=== PATIENT | male | born 1985 | race Caucasian/White ===

== ENCOUNTER 2018-01-22 05:44 | Emergency (ER) | payer OTHER ==
[2018-01-22] MEDS ORDERED: DEXAMETHASONE 10 MG/ML VIAL ONE (05:52)
[2018-01-22] MEDS ORDERED: DIPHENHYDRAMINE 50 MG/ML VIAL ONE (05:52)
[2018-01-22] MEDS ORDERED: EPINEPHRINE/PF 1 MG/ML AMP ONE (05:53)
[2018-01-22] MEDS ORDERED: FAMOTIDINE 20 MG/2 ML VIAL IV ONE (06:02)
[2018-01-22] MEDS ORDERED: NA CHLORIDE 0.9% 1,000 ML ONE (06:02)
[2018-01-22] MEDS ORDERED: ONDANSETRON 4 MG/2 ML VIAL ONE (06:04)
--- NOTE | 2018-01-22 06:51 | ER ---
Nurse's Notes [facility] Name: Bartolo Dotson Age: 32 yrs Sex: Male : 1985 Arrival Date: 01/22/2018 Time: 05:49 Bed 4 Private MD: Diagnosis: acute allergic reaction Presentation: 01/22 05:50 Presenting complaint: Patient states: Woke up at 0430 vomiting and began to have facial tl2 swelling and feeling like throat was closing up with breathing difficulty. Transition of care: patient was not received from another setting of care. Onset: The symptoms/episode began/occurred acutely. Anaphylaxis evaluation, angioedema. Onset of symptoms was January 22, 2018 at 04:30. Risk Assessment: Do you want to hurt yourself or someone else? Patient reports no desire to harm self or others. Initial Sepsis Screen: Does the patient meet any 2 criteria? No. Patient's initial sepsis screen is negative. Does the patient have a suspected source of infection? No. Patient's initial sepsis screen is negative. Care prior to arrival: None. 05:50 Method Of Arrival: Ambulatory tl2 05:50 Acuity: DALY 2 tl2 Triage Assessment: 05:51 General: Appears in no apparent distress. uncomfortable, Behavior is cooperative, tl2 appropriate for age, anxious. Pain: Denies pain. EENT: Throat uvula is edematous. Neuro: Level of Consciousness is awake, alert, obeys commands, Oriented to person, place, time, situation. Respiratory: Airway is patent Respiratory effort is even, labored, Respiratory pattern is regular, symmetrical. Historical: - Allergies: 05:51 No Known Allergies; tl2 - Home Meds: 05:51 None [Active]; tl2 - PMHx: 05:51 None; tl2 - Immunization history:: Adult Immunizations up to date. - Social history:: Smoking status: Patient/guardian denies using tobacco. - Ebola Screening: : No symptoms or risks identified at this time. - Family history:: not pertinent. - Hospitalizations: : No recent hospitalization is reported. Screenin:53 Abuse screen: Denies threats or abuse. Denies injuries from another. Nutritional mg2 screening: No deficits noted. Tuberculosis screening: No symptoms or risk factors identified. Fall Risk IV access (20 points). Assessment: 05:54 General: Appears uncomfortable, Behavior is calm, cooperative. Pain: Denies pain. mg2 Neuro: Level of Consciousness is awake, alert, obeys commands, Oriented to person, place, time, situation. Cardiovascular: Capillary refill < 3 seconds Patient's skin is warm and dry. 06:17 Respiratory: Airway is patent pt with swollen uvula noted. Breath sounds are clear ak1 bilaterally. GI: Abdomen is flat, Reports nausea, vomiting. : No signs and/or symptoms were reported regarding the genitourinary system. EENT: redness and swelling under bilateral eyes. Derm: No signs and/or symptoms reported regarding the dermatologic system. Musculoskeletal: No signs and/or symptoms reported regarding the musculoskeletal system. Vital Signs: 05:51 BP 142 / 84; Pulse 95; Resp 20; Temp 97.8(O); Pulse Ox 98% on R/A; Weight 104.33 kg; tl2 Height 5 ft. 8 in. (172.72 cm); Pain 0/10; 06:17 BP 141 / 85; Pulse 72; Resp 18; Pulse Ox 100% on 2 lpm NC; ak1 06:52 BP 138 / 85; Pulse 75; Resp 16; Temp 98; Pulse Ox 100% on R/A; Pain 0/10; ak1 05:51 Body Mass Index 34.97 (104.33 kg, 172.72 cm) tl2 ED Course: 05:49 Patient arrived in ED. tl2 05:50 Inserted saline lock: 20 gauge in right antecubital area, using aseptic technique. ak1 05:51 Triage completed. tl2 05:51 Arm band placed on right wrist. tl2 05:53 Bharath Mills MD is Attending Physician. sc 05:54 Patient has correct armband on for positive identification. Placed in gown. Bed in low tl2 position. Call light in reach. Side rails up X 1. Adult w/ patient. 06:18 No provider procedures requiring assistance completed. ak1 07:01 IV discontinued, intact, bleeding controlled, No redness/swelling at site. Pressure ak1 dressing applied. Administered Medications: 05:56 Drug: EPINEPHrine 1mg/mL 1:1,000 0.3 ml Route: Sub-Q; Site: right upper arm; tl2 07:01 Follow up: Response: No adverse reaction ak1 05:56 Drug: Decadron - Dexamethasone 10 mg Route: IVP; Site: right antecubital; tl2 07:00 Follow up: Response: No adverse reaction ak1 05:56 CANCELLED (Physician Discretion): Benadryl 12.5 mg IVP once sc 05:56 Drug: Benadryl 25 mg Route: IVP; Site: right antecubital; tl2 07:00 Follow up: Response: No adverse reaction ak1 06:08 Drug: NS 0.9% 1000 ml Route: IV; Rate: 1 bolus; Site: right antecubital; rv 06:09 Drug: Zofran 4 mg Route: IVP; Site: right antecubital; rv 07:00 Follow up: Response: No adverse reaction ak1 06:09 Drug: Pepcid 20 mg Route: IVP; Site: right antecubital; rv 07:00 Follow up: Response: No adverse reaction ak1 Outcome: 06:50 Discharge ordered by . sc 07:01 Discharged to home ambulatory, with family. ak1 07:01 Condition: good 07:01 Discharge instructions given to patient, family, Instructed on discharge instructions, follow up and referral plans. no drinking with medication, no driving heavy equipment, medication usage, Demonstrated understanding of instructions, follow-up care, medications. 07:02 Patient left the ED. ak1 Signatures: Maye Goncalves RN RN ak1 Sarah Quiroz RN RN tl2 Bharath Mills MD MD wa Gardose, Michele, RN RN [facility] Paco Bagley RN RN rv Corrections: (The following items were deleted from the chart) 05:54 05:50 Acuity: DALY 1 tl2 tl2
--- NOTE | 2018-01-22 06:51 | EDPHYS ---
Physician Documentation [facility] Name: Bartolo Dotson Age: 32 yrs Sex: Male : 1985 Arrival Date: 01/22/2018 Time: 05:49 Bed 4 Private MD: ED Physician Bharath Mills HPI: 01/22 06:03 This 32 yrs old Male presents to ER via Ambulatory with complaints of wa Allergic Reaction. 06:14 The patient presents with difficulty swallowing, localized swelling, redness of skin, wa shortness of breath, swelling of the lips. Onset: The symptoms/episode began/occurred 1 hour(s) ago. Associated signs and symptoms: Pertinent positives: hives, rash, shortness of breath, vomiting, Pertinent negatives: Altered mental status dysphagia, headache, Syncope. Possible causes: The patient has no known obvious cause for the symptoms. Possible causes: eat a protein bar. otherwise no other known insult. At home the patient or guardian has treated the symptoms with nothing. Severity of symptoms: At their worst the symptoms were moderate in the emergency department the symptoms are unchanged. The patient has not experienced similar symptoms in the past. The patient has not recently seen a physician. Historical: - Allergies: 05:51 No Known Allergies; tl2 - Home Meds: 05:51 None [Active]; tl2 - PMHx: 05:51 None; tl2 - Immunization history:: Adult Immunizations up to date. - Social history:: Smoking status: Patient/guardian denies using tobacco. - Ebola Screening: : No symptoms or risks identified at this time. - Family history:: not pertinent. - Hospitalizations: : No recent hospitalization is reported. ROS: 06:16 Constitutional: Negative for fever, chills, and weight loss, Eyes: Negative for injury, wa pain, redness, and discharge, Neck: Negative for injury, pain, and swelling, Back: Negative for injury and pain, : Negative for injury, bleeding, discharge, and swelling, MS/Extremity: Negative for injury and deformity, Neuro: Negative for headache, weakness, numbness, tingling, and seizure, Psych: Negative for depression, anxiety, suicide ideation, homicidal ideation, and hallucinations. 06:16 ENT: Positive for sensation of lip and throat swelling. 06:16 Cardiovascular: Negative for chest pain, edema, orthopnea. 06:16 Respiratory: Positive for shortness of breath, at rest. 06:16 Skin: Positive for rash, of the face. 06:16 All other systems are negative. Exam: 06:19 Constitutional: This is a well developed, well nourished patient who is awake, alert, wa and in no acute distress. Head/Face: Normocephalic, atraumatic. Eyes: Pupils equal round and reactive to light, extra-ocular motions intact. Lids and lashes normal. Conjunctiva and sclera are non-icteric and not injected. Cornea within normal limits. Periorbital areas with no swelling, redness, or edema. Neck: Trachea midline, no thyromegaly or masses palpated, and no cervical lymphadenopathy. Supple, full range of motion without nuchal rigidity, or vertebral point tenderness. No Meningismus. Chest/axilla: Normal chest wall appearance and motion. Nontender with no deformity. No lesions are appreciated. Cardiovascular: Regular rate and rhythm with a normal S1 and S2. No gallops, murmurs, or rubs. Normal PMI, no JVD. No pulse deficits. Abdomen/GI: Soft, non-tender, with normal bowel sounds. No distension or tympany. No guarding or rebound. No evidence of tenderness throughout. Back: No spinal tenderness. No costovertebral tenderness. Full range of motion. MS/ Extremity: Pulses equal, no cyanosis. Neurovascular intact. Full, normal range of motion. Neuro: Awake and alert, GCS 15, oriented to person, place, time, and situation. Cranial nerves II-XII grossly intact. Motor strength 5/5 in all extremities. Sensory grossly intact. Cerebellar exam normal. Normal gait. Psych: Awake, alert, with orientation to person, place and time. Behavior, mood, and affect are within normal limits. 06:19 ENT: Posterior pharynx: Uvula: midline, edematous, erythema. 06:19 Cardiovascular: Rate: normal, Heart sounds: normal, Edema: is not appreciated. 06:19 Respiratory: the patient does not display signs of respiratory distress, Respirations: normal, Breath sounds: are clear throughout, Respiratory rate: nml 06:19 Skin: on the face, blotchy redness noted. Vital Signs: 05:51 BP 142 / 84; Pulse 95; Resp 20; Temp 97.8(O); Pulse Ox 98% on R/A; Weight 104.33 kg; tl2 Height 5 ft. 8 in. (172.72 cm); Pain 0/10; 06:17 BP 141 / 85; Pulse 72; Resp 18; Pulse Ox 100% on 2 lpm NC; ak1 06:52 BP 138 / 85; Pulse 75; Resp 16; Temp 98; Pulse Ox 100% on R/A; Pain 0/10; ak1 05:51 Body Mass Index 34.97 (104.33 kg, 172.72 cm) tl2 MDM: 05:53 Patient medically screened. de 06:21 Differential diagnosis: anaphylaxis, angioedema, urticaria. de 06:43 Data reviewed: vital signs, nurses notes. Response to treatment: the patient's symptoms wa have markedly improved after treatment. 01/22 05:54 Order name: Cardiac monitoring; Complete Time: 05:56 de 01/22 05:54 Order name: IV Saline Lock; Complete Time: 05:56 de 01/22 05:54 Order name: O2 Per Protocol; Complete Time: 05:56 de 01/22 05:54 Order name: O2 Sat Monitoring; Complete Time: 05:56 de Administered Medications: 05:56 Drug: EPINEPHrine 1mg/mL 1:1,000 0.3 ml Route: Sub-Q; Site: right upper arm; tl2 07:01 Follow up: Response: No adverse reaction ak1 05:56 Drug: Decadron - Dexamethasone 10 mg Route: IVP; Site: right antecubital; tl2 07:00 Follow up: Response: No adverse reaction ak1 05:56 CANCELLED (Physician Discretion): Benadryl 12.5 mg IVP once de 05:56 Drug: Benadryl 25 mg Route: IVP; Site: right antecubital; tl2 07:00 Follow up: Response: No adverse reaction ak1 06:08 Drug: NS 0.9% 1000 ml Route: IV; Rate: 1 bolus; Site: right antecubital; rv 06:09 Drug: Zofran 4 mg Route: IVP; Site: right antecubital; rv 07:00 Follow up: Response: No adverse reaction ak1 06:09 Drug: Pepcid 20 mg Route: IVP; Site: right antecubital; rv 07:00 Follow up: Response: No adverse reaction ak1 Disposition: 01/22/18 06:50 Discharged to Home. Impression: acute allergic reaction. - Condition is Stable. - Prescriptions for EpiPen 0.3 mg Injection auto- injector - inject 1 pen by INTRAMUSCULAR route one time Inject into the outer portion of the thigh, through clothing if necessary. Indicated in the emergency treatment of allergic reactions; 1 box. Prednisone 20 mg Oral Tablet - take 2 tablet by ORAL route once daily for 5 days; 10 tablet. - Medication Reconciliation Form, Thank You Letter, Antibiotic Education, Prescription Opioid Use form. - Follow up: Private Physician; When: 1 - 2 days; Reason: Recheck today's complaints. - Problem is new. - Symptoms have improved. - Notes: you may take benadryl for itching as needed. return for rapidly worsening concerns Signatures: Dispatcher [employer] EDMS Maye Goncalves RN RN ak1 Sarah Quiroz RN RN tl2 Bharath Mills MD MD wa Vicente, Ronaldo RN RN rv Corrections: (The following items were deleted from the chart) 05:56 05:55 Benadryl 12.5 mg IVP once ordered. [facility] 07:02 06:50 01/22/2018 06:50 Discharged to Home. Impression: acute allergic reaction. ak1 Condition is Stable. Forms are Medication Reconciliation Form, Thank You Letter, Antibiotic Education, Prescription Opioid Use. Follow up: Private Physician; When: 1 - 2 days; Reason: Recheck today's complaints. Problem is new. Symptoms have improved. de
== END 2018-01-22 07:02 | disposition home or self-care (01) ==
LOC: ER 05:44
DX: R21 Rash and other nonspecific skin eruption (principal)
CPT/HCPCS: 96372; 96374; 96375; 99283; J0171; J1100; J2405; J7030

== ENCOUNTER 2020-02-06 01:37 | Emergency (ER) | payer OTHER ==
--- OUTSIDE RECORDS SUMMARY | 2020-02-06 01:40 | XMS REPORT | Continuity of Care Document ---
:1985 Author Organization [facility] t Address [address] [place] [address] Care Team Providers Name Role Phone Suresh Mancilla MD Attending Clinician Doctor Unassigned, Name Attending Clinician Unavailable Maya FOSTER I Attending Clinician Problems This patient has no known problems. Allergies, Adverse Reactions, Alerts This patient has no known allergies or adverse reactions. Medications This patient has no known medications. Procedures This patient has no known procedures. Encounters Start End Encounter Admission Attending Care Care Encounter Source Date/Time Date/Time Type Type Clinicians Facility Department ID 2019-10-14 2019-10-14 Urgent TUYET Mancilla [id number] 19:58:53 20:13:53 Care [place] [employer] [id number] Surgical [id number] Specialti [id number] [address] 2019-10-14 2019-10-14 Orders Doctor TAMARA [id number] 00:00:00 00:00:00 Only Unassigned, DANIEL [id number] [place] [facility] [id number] 2019-10-06 2019-10-06 Office MAGUE Trejo [id number] 14:56:25 17:15:33 Visit Omero Beyer AMBULATOR [id number] Y [id number] 2019-06-01 2019-06-01 Office MAGUE Trejo [id number] 13:06:21 14:14:22 Visit Omero Beyer AMBULATOR [id number] Y [id number] Results This patient has no known results.
[2020-02-06 03:37] LABS: Absolute Lymphocytes (CBC) 2.9 K/uL (0.7-4.9); Basophils % 0.6 % (0-1.3); Hematocrit 53.2 % (39.6-49.0); Lymphocytes % 39.2 % (15.3-44.8); MPV 7.6 fL (7.6-11.3); RBC Red Blood Cell Count 6.23 M/uL (4.33-5.43)
[2020-02-06 03:42] LABS: Protime INR 0.96
[2020-02-06 04:02] LABS: ALT/SGPT 60 U/L (12-78); AST/SGOT 39 U/L (15-37); Albumin 3.5 g/dL (3.4-5.0); Alkaline Phosphatase 54 U/L (45-117); BUN Blood Urea Nitrogen 30 mg/dL (7-18); Bicarbonate 24 mmol/L (21-32); Bilirubin Direct 0.1 mg/dL (0-0.2); Bilirubin Total 0.4 mg/dL (0.2-1.0); Creatine Phosphokinase 685 U/L (39-308); Glucose Level 96 mg/dL (74-106); Magnesium 1.8 mg/dL (1.8-2.4); NT PRO-BNP 18 pg/mL (<125); Potassium 3.9 mmol/L (3.5-5.1); Protein, Total 6.4 g/dL (6.4-8.2); Sodium Level 140 mmol/L (136-145); Troponin (Emerg Dept Use Only) < 0.02 ng/mL (0.0-0.045)
[2020-02-06 04:03] LABS: CKMB Creatine Kinase MB 16.2 ng/mL (0.3-3.6)
[2020-02-06] MEDS ORDERED: NA CHLORIDE 0.9% 1,000 ML ONE (04:31)
[2020-02-06 04:37] LABS: Barbiturates NEGATIVE (NEGATIVE); Benzodiazepines NEGATIVE (NEGATIVE); Cocaine NEGATIVE (NEGATIVE); METHAMPHETAM NEGATIVE (NEGATIVE); Methadone NEGATIVE (NEGATIVE); Opiates NEGATIVE (NEGATIVE); Phencyclidine NEGATIVE (NEGATIVE); THC Cannibis NEGATIVE (NEGATIVE)
[2020-02-06 04:54] LABS: Urine Blood TRACE (NEG); Urine Glucose NEGATIVE (NEG); Urine Specific Gravity >1.030 (1.005-1.030)
[2020-02-06 04:55] LABS: Urine Protein NEGATIVE (NEG); Urine pH 5.5 (5.0-7.0)
--- NOTE | 2020-02-06 04:57 | ER ---
Nurse's Notes [facility] Name: Bartolo Dotson Age: 34 yrs Sex: Male : 1985 Arrival Date: 02/06/2020 Time: 01:39 Bed 19 Private MD: Diagnosis: Dyspnea, unspecified;Exposure to Coronavirus Presentation: 02/05 01:51 Chief complaint: Patient states: was diagnosed COVID + yesterday; patient states lp1 feeling shortness of breath that began at 2200 tonight; Denies fever, cough; states headache. Coronavirus screen: Patient denies a cough. Patient reports shortness of breath or difficulty breathing. Patient denies measured and/or subjective temperature greater than 100.4F prior to today's visit. Patient denies travel on a cruise ship or to a country the [facility] currently lists as an affected area. Patient reports contact with known and/or suspected case of COVID-19. Patient's COVID positive. 01:51 Method Of Arrival: Ambulatory lp1 01:55 Ebola Screen: No symptoms or risks identified at this time. Initial Sepsis Screen: Does lp1 the patient meet any 2 criteria? No. Patient's initial sepsis screen is negative. Does the patient have a suspected source of infection? No. Patient's initial sepsis screen is negative. Risk Assessment: Do you want to hurt yourself or someone else? Patient reports no desire to harm self or others. Onset of symptoms was February 06, 2020. 01:55 Acuity: DALY 3 lp1 Triage Assessment: 02/04 02:30 Respiratory: Onset: The symptoms/episode began/occurred suddenly, the patient reports wh symptoms have resolved. Historical: - Allergies: 02/05 01:56 No Known Allergies; lp1 - Home Meds: 01:56 None [Active]; lp1 - PMHx: 01:56 None; lp1 - PSHx: 01:56 None; lp1 - Immunization history:: Adult Immunizations up to date. - Social history:: Smoking status: Patient denies any tobacco usage or history of. Screenin:55 Abuse screen: Denies threats or abuse. Denies injuries from another. Nutritional lp1 screening: No deficits noted. Tuberculosis screening: No symptoms or risk factors identified. Fall Risk None identified. Assessment: 02:15 General: Appears in no apparent distress. Behavior is calm, cooperative, appropriate wh for age. Pain: Denies pain. Neuro: Level of Consciousness is awake, alert, obeys commands, Oriented to person, place, time, situation, Appropriate for age. Cardiovascular: Heart tones S1 S2 Rhythm is sinus bradycardia. Respiratory: Reports shortness of breath Airway is patent Respiratory effort is even, unlabored, Respiratory pattern is regular, symmetrical, Breath sounds are clear bilaterally. GI: Abdomen is flat, non-distended. : No signs and/or symptoms were reported regarding the genitourinary system. EENT: No signs and/or symptoms were reported regarding the EENT system. Derm: Skin is intact, is healthy with good turgor, Skin is pink, warm \T\ dry. normal. Musculoskeletal: Circulation, motion, and sensation intact. 03:35 Reassessment: Patient appears in no apparent distress at this time. No changes from previously documented assessment. Patient and/or family updated on plan of care and expected duration. Pain level reassessed. Patient is alert, oriented x 3, equal unlabored respirations, skin warm/dry/pink. 04:45 Reassessment: Patient appears in no apparent distress at this time. No changes from previously documented assessment. Patient and/or family updated on plan of care and expected duration. Pain level reassessed. Patient is alert, oriented x 3, equal unlabored respirations, skin warm/dry/pink. Vital Signs: 01:51 BP 141 / 95; Pulse 61; Resp 18; Temp 98(O); Pulse Ox 100% on R/A; Weight 104.33 kg (R); lp1 Height 5 ft. 8 in. (172.72 cm); Pain 0/10; 03:30 BP 131 / 92; Pulse 59; Resp 18; Pulse Ox 99% on R/A; wh 05:00 BP 132 / 84; Pulse 71; Resp 18; Pulse Ox 98% on R/A; wh 01:51 Body Mass Index 34.97 (104.33 kg, 172.72 cm) lp1 ED Course: 01:39 Patient arrived in ED. cl3 01:55 Triage completed. lp1 01:55 Arm band placed on. lp1 01:58 Yvon Shetty MD is Attending Physician. 7 02:13 August Grier is Primary Nurse. wh 02:30 Patient has correct armband on for positive identification. Bed in low position. Call light in reach. Side rails up X 1. Pulse ox on. NIBP on. 02:45 Inserted saline lock: 20 gauge in right forearm, using aseptic technique. Blood collected. 02:52 Chest Single View XRAY In Process Unspecified. EDMS 05:19 No provider procedures requiring assistance completed. IV discontinued, intact, bleeding controlled, No redness/swelling at site. Administered Medications: 04:39 Drug: NS 0.9% 1000 ml Route: IV; Rate: 1000 ml; Site: right forearm; 05:19 Follow up: Response: No adverse reaction; IV Status: Completed infusion Outcome: 04:56 Discharge ordered by MD. loera 05:19 Discharged to home ambulatory. 05:19 Condition: stable 05:19 Discharge instructions given to patient, Instructed on discharge instructions, follow up and referral plans. POC Demonstrated understanding of instructions, follow-up care, POC 05:19 Patient left the ED. Addendum: 02/07/2020 16:30 Addendum: Other Pt notified of negative COVID-19 swab results. Pt advised to remain in d m5 isolation until symptoms free for 3 days and to return to the ED for worsening symptoms. Signatures: Dispatcher [employer] EDMS Sonal Salazar, RN RN [id number] Katie Espinoza, SONIDO RN lp1 August Grier Jan Maldonado cl3 Yvon Shetty MD MD [id number]
--- NOTE | 2020-02-06 04:57 | EDPHYS ---
Physician Documentation [facility] Name: Bartolo Dotson Age: 34 yrs Sex: Male : 1985 Arrival Date: 02/06/2020 Time: 01:39 Bed 19 Private MD: ED Physician Yvon Shetty HPI: 02/05 02:36 This 34 yrs old Male presents to ER via Ambulatory with complaints of mh7 Shortness Of Breath. 02:36 The patient has shortness of breath at rest. Onset: The symptoms/episode began/occurred mh7 today. Duration: The symptoms are intermittent, with no pattern. The patient's shortness of breath is aggravated by nothing, is alleviated by nothing. Associated signs and symptoms: Pertinent negatives: non-productive cough, productive cough, diaphoresis, dizziness, fever, hemoptysis, loss of consciousness, nausea, numbness in extremities, visual changes, vomiting. 02:36 Associated signs and symptoms: Pertinent negatives: chest pain. Severity of symptoms: mh7 At their worst the symptoms were moderate today, in the emergency department the symptoms have improved moderately. Patient states that his recently tested positive for COVID 19. He started feeling SOB this evening. Denies any fever, cough, chest pain, nausea, vomiting.. Historical: - Allergies: 01:56 No Known Allergies; lp1 - Home Meds: 01:56 None [Active]; lp1 - PMHx: 01:56 None; lp1 - PSHx: 01:56 None; lp1 - Immunization history:: Adult Immunizations up to date. - Social history:: Smoking status: Patient denies any tobacco usage or history of. ROS: 02:36 Constitutional: Negative for fever, chills, and weight loss, Eyes: Negative for injury, mh7 pain, redness, and discharge, ENT: Negative for injury, pain, and discharge, Neck: Negative for injury, pain, and swelling, Cardiovascular: Negative for chest pain, palpitations, and edema, Abdomen/GI: Negative for abdominal pain, nausea, vomiting, diarrhea, and constipation, Back: Negative for injury and pain, : Negative for injury, bleeding, discharge, and swelling, MS/Extremity: Negative for injury and deformity, Skin: Negative for injury, rash, and discoloration, Neuro: Negative for headache, weakness, numbness, tingling, and seizure, Psych: Negative for depression, anxiety, suicide ideation, homicidal ideation, and hallucinations, Allergy/Immunology: Negative for hives, rash, and allergies, Endocrine: Negative for neck swelling, polydipsia, polyuria, polyphagia, and marked weight changes, Hematologic/Lymphatic: Negative for swollen nodes, abnormal bleeding, and unusual bruising. Exam: 02:36 Constitutional: This is a well developed, well nourished patient who is awake, alert, mh7 and in no acute distress. Head/Face: Normocephalic, atraumatic. Eyes: Pupils equal round and reactive to light, extra-ocular motions intact. Lids and lashes normal. Conjunctiva and sclera are non-icteric and not injected. Cornea within normal limits. Periorbital areas with no swelling, redness, or edema. Neck: Trachea midline, no thyromegaly or masses palpated, and no cervical lymphadenopathy. Supple, full range of motion without nuchal rigidity, or vertebral point tenderness. No Meningismus. Chest/axilla: Normal chest wall appearance and motion. Nontender with no deformity. No lesions are appreciated. Cardiovascular: Regular rate and rhythm with a normal S1 and S2. No gallops, murmurs, or rubs. Normal PMI, no JVD. No pulse deficits. Respiratory: Lungs have equal breath sounds bilaterally, clear to auscultation and percussion. No rales, rhonchi or wheezes noted. No increased work of breathing, no retractions or nasal flaring. Abdomen/GI: Soft, non-tender, with normal bowel sounds. No distension or tympany. No guarding or rebound. No evidence of tenderness throughout. Back: No spinal tenderness. No costovertebral tenderness. Full range of motion. Skin: Warm, dry with normal turgor. Normal color with no rashes, no lesions, and no evidence of cellulitis. MS/ Extremity: Pulses equal, no cyanosis. Neurovascular intact. Full, normal range of motion. Neuro: Awake and alert, GCS 15, oriented to person, place, time, and situation. Cranial nerves II-XII grossly intact. Motor strength 5/5 in all extremities. Sensory grossly intact. Cerebellar exam normal. Normal gait. Psych: Awake, alert, with orientation to person, place and time. Behavior, mood, and affect are within normal limits. 05:00 ECG was reviewed by the Attending Physician. [facility] Vital Signs: 01:51 BP 141 / 95; Pulse 61; Resp 18; Temp 98(O); Pulse Ox 100% on R/A; Weight 104.33 kg (R); lp1 Height 5 ft. 8 in. (172.72 cm); Pain 0/10; 03:30 BP 131 / 92; Pulse 59; Resp 18; Pulse Ox 99% on R/A; wh 05:00 BP 132 / 84; Pulse 71; Resp 18; Pulse Ox 98% on R/A; wh 01:51 Body Mass Index 34.97 (104.33 kg, 172.72 cm) lp1 MDM: 02:11 Patient medically screened. [facility] 04:52 Differential diagnosis: Anemia Anxiety Reaction asthma, Bronchitis Myocardial 7 Infarction pneumonia, Pneumothorax pulmonary edema, Pulmonary Embolism reactive airway disease, COVID 19, Viral Syndrome, Dyspnea. Data reviewed: vital signs, nurses notes, lab test result(s), cardiac enzymes, CBC, electrolytes, urinalysis, EKG, radiologic studies, plain films. Data interpreted: quality assurance monitor chassis: rate is 61 beats/min, rhythm is normal sinus rhythm, regular, Interpretation: normal rate, normal rhythm, Pulse oximetry: on room air is 100 %. Interpretation: normal. Counseling: I had a detailed discussion with the patient and/or guardian regarding: the historical points, exam findings, and any diagnostic results supporting the discharge/admit diagnosis, the presence of at least one elevated blood pressure reading (>120/80) during this emergency department visit, lab results, radiology results, the need for outpatient follow up, to return to the emergency department if symptoms worsen or persist or if there are any questions or concerns that arise at home. 04:52 Response to treatment: the patient's symptoms have resolved after treatment, the [facility] patient's blood pressure is in an acceptable range, mental status has returned to baseline, the patient no longer shows bradycardia, the patient is not short of breath, the patient is not tachycardic, the patient's pain is gone, the patient's temperature has normalized. 02/05 02:13 Order name: Blood Culture Adult (2) [facility] 02/05 02:13 Order name: BMP; Complete Time: 04:03 [facility] 02/05 02:13 Order name: CBC with Diff; Complete Time: 04:03 02/05 02:13 Order name: Ckmb; Complete Time: 04:03 02/05 02:13 Order name: CPK; Complete Time: 04:03 02/05 02:13 Order name: D-Dimer; Complete Time: 04:03 02/05 02:13 Order name: Hepatic Function; Complete Time: 04:03 02/05 02:13 Order name: Magnesium; Complete Time: 04:03 02/05 02:13 Order name: NT PRO-BNP; Complete Time: 04:03 02/05 02:13 Order name: PT-INR; Complete Time: 04:03 02/05 02:13 Order name: Ptt, Activated; Complete Time: 04:03 02/05 02:13 Order name: Troponin (emerg Dept Use Only); Complete Time: 04:03 02/05 02:13 Order name: Influenza Screen (a \T\ B) 02/05 02:13 Order name: COVID-19 02/05 02:13 Order name: EKG; Complete Time: 02:15 02/05 02:13 Order name: Cardiac monitoring; Complete Time: 03:12 02/05 02:13 Order name: EKG - Nurse/Tech; Complete Time: 03:12 02/05 02:13 Order name: IV Saline Lock; Complete Time: 03:12 02/05 02:13 Order name: Labs collected and sent; Complete Time: 03:12 02/05 02:13 Order name: O2 Per Protocol; Complete Time: 03:12 02/05 02:13 Order name: O2 Sat Monitoring; Complete Time: 03:12 02/05 02:13 Order name: Chest Single View XRAY 02/05 04:05 Order name: Urine Dipstick-Ancillary (obtain specimen); Complete Time: 04:39 02/05 04:05 Order name: UDS; Complete Time: 04:49 02/05 04:21 Order name: Urine Dipstick--Ancillary (enter results) tt3 EC:00 Rate is 57 beats/min. Rhythm is regular, Sinus bradycardia. QRS [place] is Normal. CT mh7 interval is normal. QRS interval is normal. QT interval is normal. No Q waves. T waves are Normal. No ST changes noted. Clinical impression: Normal ECG. Administered Medications: 04:39 Drug: NS 0.9% 1000 ml Route: IV; Rate: 1000 ml; Site: right forearm; 05:19 Follow up: Response: No adverse reaction; IV Status: Completed infusion Disposition: 02/06/20 04:56 Discharged to Home. Impression: Dyspnea, unspecified, Exposure to Coronavirus. - Condition is Stable. - Discharge Instructions: Shortness of Breath, [id number]. - Medication Reconciliation Form, Thank You Letter, Antibiotic Education, Prescription Opioid Use form. - Follow up: Private Physician; When: 1 - 2 days; Reason: Worsening of condition, Recheck today's complaints, Re-evaluation by your physician. - Problem is new. - Symptoms have improved. Signatures: Dispatcher [employer] EDMS Katie Espinoza RN RN lp1 August Grier Yvon Shetty MD MD mh7 Corrections: (The following items were deleted from the chart) 05:19 04:56 02/06/2020 04:56 Discharged to Home. Impression: Dyspnea, unspecified; Exposure to Coronavirus. Condition is Stable. Forms are Medication Reconciliation Form, Thank You Letter, Antibiotic Education, Prescription Opioid Use. Follow up: Private Physician; When: 1 - 2 days; Reason: Worsening of condition, Recheck today's complaints, Re-evaluation by your physician. Problem is new. Symptoms have improved. mh7
[2020-02-06 05:27] VITALS: TEMP 98
[2020-02-06 05:29] VITALS: BP 132/84; O2SAT 98
--- NOTE | 2020-02-06 10:12 | RAD REPORT ---
EXAM DESCRIPTION: RAD - Chest Single View - 02/06/2020 4:38 am CLINICAL HISTORY: 34 years Male, SOB COMPARISON: None. FINDINGS: No consolidation. No pneumothorax. No significant pleural effusion. Cardiomediastinal silhouette is unremarkable. Osseous structures are unremarkable. IMPRESSION: No acute findings. Electronically signed by: Jean Paul Bocanegra MD 02/06/2020 3:57 AM CDT Due to temporary technical issues with the PACS/Fluency reporting system, reports are being signed by the in house radiologist without review as a courtesy to ensure prompt reporting. The interpreting r adiologist is fully responsible for the content of the report.
--- NOTE | 2020-02-07 07:19 | EKG ---
Test Date: 2020-02-06 Test Time: 02:47:46 Metal Spinner: BHAVESH MEASUREMENT RESULTS: Intervals: Rate: 57 WA: 184 QRSD: 104 QT: 402 QTc: 391 [place]: P: 61 WA: 184 QRS: 89 T: 40 INTERPRETIVE STATEMENTS: Sinus bradycardia Otherwise normal ECG No previous ECG available for comparison Electronically Signed On 02-07-20 07:15:59 CDT by Patrice Vergara
== END 2020-02-06 05:19 | disposition home or self-care (01) ==
LOC: ER 01:37
DX: R06.00 Dyspnea, unspecified (principal); Z20.828 Contact with and (suspected) exposure to other viral communicable diseases
CPT/HCPCS: 93005; 87040 ×2; 85025; 80048; 36415; 83735; 82550; 85610; 85379; 80076; 80307 ×8; 85730; 81003; 84484; 82553; 83880; 87804 ×2; 71045; 96360; 99284; U0002; J7030

== ENCOUNTER 2020-05-16 11:21 | Emergency (ER) | payer OTHER ==
[2020-05-16 12:19] LABS: Absolute Lymphocytes (CBC) 1.5 K/uL (0.7-4.9); Basophils % 0.7 % (0-1.3); Hematocrit 46.5 % (39.6-49.0); Lymphocytes % 38.9 % (15.3-44.8); MPV 7.2 fL (7.6-11.3); RBC Red Blood Cell Count 5.36 M/uL (4.33-5.43)
--- NOTE | 2020-05-16 12:22 | RAD REPORT ---
EXAM DESCRIPTION: RAD - Chest Single View - 05/16/2020 11:59 am CLINICAL HISTORY: CHEST PAIN COMPARISON: February 06, 2020 TECHNIQUE: AP portable chest image was obtained 05/16/2020 11:59 am . FINDINGS: Lungs are clear. Heart and vasculature are normal. No measurable pleural effusion and no p neumothorax. No acute bony abnormality seen. No acute aortic findings suspected. IMPRESSION: No acute cardiopulmonary process. No significant change from comparison.
[2020-05-16 12:32] LABS: ALT/SGPT 43 U/L (12-78); AST/SGOT 25 U/L (15-37); Albumin 3.5 g/dL (3.4-5.0); Alkaline Phosphatase 61 U/L (45-117); BUN Blood Urea Nitrogen 24 mg/dL (7-18); Bicarbonate 28 mmol/L (21-32); Bilirubin Direct 0.2 mg/dL (0-0.2); Bilirubin Total 0.6 mg/dL (0.2-1.0); Glucose Level 93 mg/dL (74-106); Lipase 199 U/L (73-393); NT PRO-BNP 66 pg/mL (<125); Potassium 4.2 mmol/L (3.5-5.1); Protein, Total 6.6 g/dL (6.4-8.2); Sodium Level 142 mmol/L (136-145); Troponin (Emerg Dept Use Only) < 0.02 ng/mL (0.0-0.045)
--- NOTE | 2020-05-16 12:41 | RAD REPORT ---
EXAM DESCRIPTION: CT - Chest For Pe Angio - 05/16/2020 12:29 pm CLINICAL HISTORY: Chest pain COMPARISON: None. TECHNIQUE: Dynamically enhanced axial 3 mm thick images of the chest were obtained during administra tion of <100> mL Isovue 370 IV contrast. Coronal and oblique reconstruction images were generated and reviewed. Exam utilizes a protocol for optimal evaluation of pulmonary arterial tree. Maximum intensity projections 3D imaging was utilized All CT scans are performed using dose optimization technique as appropriate and may include automated exposure control or mA/KV adjustment according to patient size. FINDINGS: A pulmonary embolus is not seen. A thoracic aortic aneurysm is not noted. The heart is mildly enlarged A pleural effusion is not seen. A pericardial effusion is not seen. A lung consolidation is not present. IMPRESSION: Negative for a pulmonary embolism.
--- NOTE | 2020-05-16 12:50 | EDPHYS ---
Physician Documentation [facility] Name: Bartolo Dotson Age: 34 yrs Sex: Male : 1985 Arrival Date: 05/16/2020 Time: 11:21 Bed 15 Private MD: ED Physician Gerardo Oliveira HPI: 05/16 12:47 This 34 yrs old Male presents to ER via Ambulatory with complaints of Chest rn Pain. 12:47 The patient or guardian reports chest pain that is located primarily in the substernal rn area, anterior chest wall. The pain does not radiate. The chest pain is described as dull. Duration: The patient or guardian reports multiple episodes, that are intermittent. Modifying factors: The symptoms are alleviated by nothing. the symptoms are aggravated by deep breath, palpation of area. Severity of pain: At its worst the pain was mild in the emergency department the pain is unchanged. The patient has not experienced similar symptoms in the past. The patient has not recently seen a physician. No famhx of early cardiac disease, no identifiable trauma or acute onset. Hurts near sternum, worse with palpation and deep breath. with COVID recently but patient tested neg x 3. . Historical: - Allergies: 11:40 No Known Allergies; iw - Home Meds: 11:40 anastrozole 1 mg oral tab 1 tab once daily [Active]; Follicle Stimulating Hormone iw [Active]; Hcg [Active]; - PMHx: 11:40 None; iw - PSHx: 11:40 None; iw - Immunization history:: Adult Immunizations not up to date. - Social history:: Smoking status: Patient denies any tobacco usage or history of. - Family history:: not pertinent. - Hospitalizations: : No recent hospitalization is reported. ROS: 12:47 Constitutional: Negative for fever, chills, and weight loss, Eyes: Negative for injury, rn pain, redness, and discharge, Cardiovascular: Negative forpalpitations, and edema, Respiratory: Negative for shortness of breath, cough, wheezing, and pleuritic chest pain, Abdomen/GI: Negative for abdominal pain, nausea, vomiting, diarrhea, and constipation, Back: Negative for injury and pain, MS/Extremity: Negative for injury and deformity, Skin: Negative for injury, rash, and discoloration, Neuro: Negative for headache, weakness, numbness, tingling, and seizure. Exam: 12:47 Constitutional: This is a well developed, well nourished patient who is awake, alert, rn and in no acute distress. Head/Face: Normocephalic, atraumatic. Eyes: Pupils equal round and reactive to light, extra-ocular motions intact. Lids and lashes normal. Conjunctiva and sclera are non-icteric and not injected. Cornea within normal limits. Periorbital areas with no swelling, redness, or edema. Chest/axilla: Normal chest wall appearance and motion. Nontender with no deformity. No lesions are appreciated. Cardiovascular: Regular rate and rhythm. No pulse deficits. Respiratory: No increased work of breathing, no retractions or nasal flaring. Abdomen/GI: soft, non-tender Skin: Warm, dry MS/ Extremity: Pulses equal, no cyanosis. Neurovascular intact. Full, normal range of motion. Equal circumference. Neuro: Awake and alert, GCS 15, oriented to person, place, time, and situation. Cranial nerves II-XII grossly intact. Motor strength 5/5 in all extremities. Sensory grossly intact. Cerebellar exam normal. Vital Signs: 11:35 BP 136 / 84; Pulse 64; Resp 16; Temp 98.3; Pulse Ox 100% on R/A; Weight 99.79 kg; iw Height 5 ft. 8 in. (172.72 cm); Pain 3/10; 13:00 BP 127 / 78; Pulse 61; Resp 15 S; Pulse Ox 100% on R/A; ca1 11:35 Body Mass Index 33.45 (99.79 kg, 172.72 cm) iw MDM: 11:24 Patient medically screened. rn 12:47 Differential diagnosis: acute pericarditis, coronary artery disease chest wall pain, rn costochondritis, esophagitis, gastritis, gastroesophageal reflux disease (GERD), pleurisy, pneumothorax, pulmonary embolus. Data reviewed: vital signs, nurses notes, lab test result(s), EKG, radiologic studies, CT scan, plain films, and as a result, I will discharge patient. Counseling: I had a detailed discussion with the patient and/or guardian regarding: the historical points, exam findings, and any diagnostic results supporting the discharge/admit diagnosis, lab results, radiology results, the need for outpatient follow up, to return to the emergency department if symptoms worsen or persist or if there are any questions or concerns that arise at home. Special discussion: Based on the patient's history, exam, and Dx evaluation, there is no indication for emergent intervention or inpatient Tx. It is understood by the patient/guardian that if the Sx's persist or worsen they need to return immediately for re-evaluation. I discussed with the patient/guardian in detail that at this point there is no indication for admission to the hospital. It is understood, however, that if the symptoms persist or worsen the patient needs to return immediately for re-evaluation. 05/16 11:35 Order name: Basic Metabolic Panel; Complete Time: 12:44 rn 05/16 11:35 Order name: CBC with Diff; Complete Time: 12:44 rn 05/16 11:35 Order name: NT PRO-BNP; Complete Time: 12:44 rn 05/16 11:35 Order name: Troponin (emerg Dept Use Only); Complete Time: 12:44 rn 05/16 11:36 Order name: LFT's; Complete Time: 12:44 rn 05/16 11:36 Order name: Lipase; Complete Time: 12:44 rn 05/16 11:35 Order name: XRAY Chest (1 view); Complete Time: 12:44 rn 05/16 11:35 Order name: EKG; Complete Time: 11:36 rn 05/16 11:35 Order name: Cardiac monitoring; Complete Time: 12:03 rn 05/16 11:35 Order name: EKG - Nurse/Tech; Complete Time: 12:04 rn 05/16 11:35 Order name: IV Saline Lock; Complete Time: 12:04 rn 05/16 11:35 Order name: Labs collected and sent; Complete Time: 12:04 rn 05/16 11:35 Order name: O2 Per Protocol; Complete Time: 12:04 rn 05/16 11:35 Order name: CT Chest For PE Angio; Complete Time: 12:44 rn 05/16 11:35 Order name: O2 Sat Monitoring; Complete Time: 12:04 rn Administered Medications: No medications were administered Disposition: 05/16/20 12:50 Discharged to Home. Impression: Chest pain, unspecified. - Condition is Stable. - Discharge Instructions: Nonspecific Chest Pain. - Medication Reconciliation Form, Thank You Letter, Antibiotic Education, Prescription Opioid Use form. - Follow up: Private Physician; When: As needed; Reason: Recheck today's complaints, Re-evaluation by your physician. - Problem is new. - Symptoms have improved. Signatures: Dispatcher [employer] Acacia Neely RN RN Gerardo Cerda MD MD rn Acob, SONIDO Manzo RN ca1 Corrections: (The following items were deleted from the chart) 13:23 12:50 05/16/2020 12:50 Discharged to Home. Impression: Chest pain, unspecified. ca1 Condition is Stable. Forms are Medication Reconciliation Form, Thank You Letter, Antibiotic Education, Prescription Opioid Use. Follow up: Private Physician; When: As needed; Reason: Recheck today's complaints, Re-evaluation by your physician. Problem is new. Symptoms have improved. rn
--- NOTE | 2020-05-16 12:50 | ER ---
Nurse's Notes [facility] Name: Bartolo Dotson Age: 34 yrs Sex: Male : 1985 Arrival Date: 05/16/2020 Time: 11:21 Bed 15 Private MD: Diagnosis: Chest pain, unspecified Presentation: 05/16 11:35 Chief complaint: Patient states: pain across his chest X 1 week, constant dull pain and iw intermittent sharpness. Coronavirus screen: At this time, the client does not indicate any symptoms associated with coronavirus-19. Ebola Screen: Patient negative for fever greater than or equal to 101.5 degrees Fahrenheit, and additional compatible Ebola Virus Disease symptoms Patient denies exposure to infectious person. Patient denies travel to an Ebola-affected area in the 21 days before illness onset. No symptoms or risks identified at this time. Initial Sepsis Screen: Does the patient meet any 2 criteria? No. Patient's initial sepsis screen is negative. Does the patient have a suspected source of infection? No. Patient's initial sepsis screen is negative. Risk Assessment: Do you want to hurt yourself or someone else? Patient reports no desire to harm self or others. Onset of symptoms was May 09, 2020. 11:35 Method Of Arrival: Ambulatory iw 11:35 Acuity: DALY 3 iw Historical: - Allergies: 11:40 No Known Allergies; iw - Home Meds: 11:40 anastrozole 1 mg oral tab 1 tab once daily [Active]; Follicle Stimulating Hormone iw [Active]; Hcg [Active]; - PMHx: 11:40 None; iw - PSHx: 11:40 None; iw - Immunization history:: Adult Immunizations not up to date. - Social history:: Smoking status: Patient denies any tobacco usage or history of. - Family history:: not pertinent. - Hospitalizations: : No recent hospitalization is reported. Screenin:50 Abuse screen: Denies threats or abuse. Nutritional screening: No deficits noted. aa5 Tuberculosis screening: No symptoms or risk factors identified. Fall Risk None identified. Assessment: 11:50 General: Appears comfortable, Behavior is calm, cooperative, Pt reports "I think I hurt aa5 myself working out maybe" . Pain: Complains of pain in mid-sternal area Pain radiates to anterior aspect of right upper chest and anterior aspect of left upper chest Pain currently is 3 out of 10 on a pain scale. Quality of pain is described as aching, dull, Pain began 1 week ago Is continuous. Neuro: Level of Consciousness is awake, alert, obeys commands, Oriented to person, place, time, situation. Cardiovascular: Heart tones S1 S2 present Rhythm is sinus rhythm. Respiratory: Airway is patent Respiratory effort is even, unlabored, Respiratory pattern is regular, symmetrical. GI: No signs and/or symptoms were reported involving the gastrointestinal system. Patient currently denies nausea, vomiting. : No signs and/or symptoms were reported regarding the genitourinary system. EENT: No signs and/or symptoms were reported regarding the EENT system. Derm: Skin is pink, warm \\T\\ dry. Musculoskeletal: Range of motion: intact in all extremities. 12:14 Reassessment: Patient is alert, oriented x 3, equal unlabored respirations, skin aa5 warm/dry/pink. Pt to CT via wheelchair . 13:21 Reassessment: Patient appears in no apparent distress at this time. Patient is alert, ca1 oriented x 3, equal unlabored respirations, skin warm/dry/pink. Vital Signs: 11:35 BP 136 / 84; Pulse 64; Resp 16; Temp 98.3; Pulse Ox 100% on R/A; Weight 99.79 kg; iw Height 5 ft. 8 in. (172.72 cm); Pain 3/10; 13:00 BP 127 / 78; Pulse 61; Resp 15 S; Pulse Ox 100% on R/A; ca1 11:35 Body Mass Index 33.45 (99.79 kg, 172.72 cm) ED Course: 11:21 Patient arrived in ED. ag5 11:23 Gerardo Oliveira MD is Attending Physician. rn 11:39 Triage completed. iw 11:41 Arm band placed on. iw 11:44 Odalis Eldridge, SONIDO is Primary Nurse. aa5 11:50 Patient has correct armband on for positive identification. Bed in low position. Call aa5 light in reach. Side rails up X 1. industrial relations commissioner on. Pulse ox on. NIBP on. 11:50 Missed attempt(s): 20 gauge in right forearm. Missed attempt by Clara Cerda [facility] aa5 . Bleeding controlled, band aid applied, catheter tip intact. 11:58 Initial lab(s) drawn, by me, sent to lab. Inserted saline lock: 20 gauge in left aa5 antecubital area, using aseptic technique. Blood collected. 11:58 No provider procedures requiring assistance completed. Patient maintains SpO2 aa5 saturation greater than 95% on room air. 12:00 XRAY Chest (1 view) In Process Unspecified. EDMS 12:30 CT Chest For PE Angio In Process Unspecified. EDMS 13:23 IV discontinued, intact, bleeding controlled, No redness/swelling at site. Pressure ca1 dressing applied. Administered Medications: No medications were administered Outcome: 12:50 Discharge ordered by MD. rn 13:23 Discharged to home ambulatory. ca1 13:23 Condition: stable 13:23 Discharge instructions given to patient, Instructed on discharge instructions, follow up and referral plans. Demonstrated understanding of instructions, follow-up care. 13:23 Patient left the ED. ca1 Signatures: Dispatcher [employer] EDMS Acacia Mcconnell RN RN iw Gerardo Oliveira MD MD rn Calderon, Audri, RN RN aa5 Anais Shea RN RN ca1 Geoffrey Miller ag5 Corrections: (The following items were deleted from the chart) 12:21 11:40 General: Appears comfortable, Behavior is calm, cooperative, Pt reports "I think aa5 I hurt myself working out maybe" . aa5 12:21 11:40 Pain: Complains of pain in mid-sternal area Pain radiates to anterior aspect of aa5 right upper chest and anterior aspect of left upper chest Pain currently is 3 out of 10 on a pain scale. Quality of pain is described as aching, dull, Pain began 1 week ago Is continuous, aa5 12:21 11:40 Neuro: Level of Consciousness is awake, alert, obeys commands, Oriented to aa5 person, place, time, situation, aa5 12:21 11:40 Cardiovascular: Heart tones S1 S2 present Rhythm is sinus rhythm aa5 aa5 12:21 11:40 Respiratory: Airway is patent Respiratory effort is even, unlabored, Respiratory aa5 pattern is regular, symmetrical, aa5 12:21 11:40 GI: No signs and/or symptoms were reported involving the gastrointestinal system. aa5 Patient currently denies nausea, vomiting, aa5 12: 11:40 : No signs and/or symptoms were reported regarding the genitourinary system. aa5aa5 : 11:40 EENT: No signs and/or symptoms were reported regarding the EENT system. aa5 aa5 11:40 Derm: Skin is pink, warm \\T\\ dry. aa5 aa5 11:40 Musculoskeletal: Range of motion: intact in all extremities, aa5 aa5
[2020-05-16 13:40] VITALS: TEMP 98.3; O2SAT 100
[2020-05-16 13:42] VITALS: BP 127/78
--- OUTSIDE RECORDS SUMMARY | 2020-05-17 03:05 | XMS REPORT | Continuity of Care Document ---
:1985 Author Organization [facility] t Address [address] [place] [address] Care Team Providers Name Role Phone Provider, Urgent Care Attending Clinician Unavailable Maya FOSTER, Kayleen Attending Clinician Suresh Mancilla MD Attending Clinician Doctor Unassigned, Name Attending Clinician Unavailable Problems This patient has no known problems. Allergies, Adverse Reactions, Alerts This patient has no known allergies or adverse reactions. Medications This patient has no known medications. Procedures This patient has no known procedures. Encounters Start End Encounter Admission Attending Care Care Encounter Source Date/Time Date/Time Type Type Clinicians Facility Department ID 2020-05-16 2020-05-16 Telephone Provider, [facility] [id number] 00:00:00 00:00:00 [facility]gent [facility] [id number] Care [place] [id number] Professio [phone] [address]al [address] 2020-03-01 2020-03-01 Office MAGUE Trejo [id number] 14:50:36 18:22:28 Visit Omero Beyer AMBULATOR [id number] Y [id number] 2019-10-14 2019-10-14 Urgent Laurent KYPATTI [id number] 19:58:53 20:13:53 [place] [facility] [id number] Surgical [id number] Specialti [id number] [place] 2019-10-14 2019-10-14 Orders Doctor TAMARA [id number] 00:00:00 00:00:00 Only Unassigned, DANIEL [id number] [place] [facility] [id number] 2019-10-06 2019-10-06 Office MAGUE Trejo [id number] 14:56:25 17:15:33 Visit Omero I AMBULATOR [id number] Y [id number] 2019-06-01 2019-06-01 Office MAGUE Trejo [id number] 13:06:21 14:14:22 Visit Omero I AMBULATOR [id number] Y [id number] Results This patient has no known results.
--- OUTSIDE RECORDS SUMMARY | 2020-05-17 03:06 | XMS REPORT | Summary of Care ---
:1985 Author Organization [facility] Address [address] [place] [id number] Care Team Providers Name Role Phone Pcp, Patient Does Not Have A Primary Care Provider +[id number] 0-0000 Reason for Visit Reason Comments Assessment Encounter Details Date Type Department Care Team Description 05/16/2020 Telephone [facility] Family Medicine Provider, [facility] Urgent Assessment - [address] [place] [address] Allergies No Known Allergiesdocumented as of this encounter (statuses as of 05/16/2020) Medications No known medicationsdocumented as of this encounter (statuses as of 05/16/2020) Active Problems No known active problemsdocumented as of this encounter (statuses as of 05/16/2020) Social History Tobacco Use Types Packs/Day Years Used Date Never Smoker Smokeless Tobacco: Current User Snuff Sex Assigned at Date Recorded Not on file documented as of this encounter Last Filed Vital Signs Not on filedocumented in this encounter Miscellaneous Notes Telephone Encounter - Anjana Jo RN - 05/16/2020 10:42 AM CDTSpoke with patient and he reports he works out and is used to chest soreness, however, this time it is different. The pain has been around a week now. He denies any SOB. He states he "sometimes" feels discomfort oninspiration with the pain. Pt was advised that it is recommended for him to be seen in the ED for further evaluation of his signs and symptoms to rule out any cardiac issues. Pt verbalized understanding with plan of care and agreed as well. ANJANA JO RN elephone Encounter - Vaishali Sanabria - 05/16/2020 10:31 AM CDTPatient calling to schedule an appointment for chest pain x 1 week, patient stated it possibly couldbe a muscle strain but not sure. documented in this encounter Plan of Treatment Health Maintenance Due Date Last Done Comments VARICELLA VACCINES (1 of - 1986 2-dose childhood series) Depression Screening 1997 DTaP,Tdap,and Td Vaccines (1 - 2004 Tdap) INFLUENZA VACCINE (#1) 2020 PNEUMOCOCCAL 0-64 YEARS COMBINED Aged Out No longer eligible based on SERIES patient's age to complete this topic documented as of this encounter Results Not on filedocumented in this encounter Insurance Payer Benefit Plan / Subscriber ID Effective Dates Phone Addre ss Type Group [id number] PPO t S JUSTICE RENDON II [id number] 2019-[facility] O/PPO/PO t S documented as of this encounter
--- OUTSIDE RECORDS SUMMARY | 2020-05-17 03:06 | XMS REPORT | Summary of Care ---
:1985 Author Organization [facility] [place] [address] Care Team Providers Name Role Phone Unavailable Primary Care Provider Unavailable Reason for Visit Reason Comments Hypogonadism Encounter Details Date Type Department Care Team Description 03/01/2020 Office Visit [facility] Fish Trejo I, Hypogonadism Urology [address] [facility] [address] [place] [address] [address] [place], [place] [address] [phone] Allergies No Known Allergiesdocumented as of this encounter (statuses as of 03/04/2020) Medications Medication Sig Dispensed Refills Start Date End Date Status aspirin 81 MG tablet Take 81 mg by 0 Active mouth daily. INSULIN SYRINGE 1CC/29G 1 box of 30 30 Each 1 01/15/2016 Active 29G X 1/2" 1 ML MISC metformin (GLUCOPHAGE) Take 1 Tab by 120 Tab 3 10/20/2018 Active 1000 MG tablet mouth 2 times daily (with meals). Phentermine HCl 37.5 MG Take 37.7 mg 30 Tab 4 12/22/2018 Active TBDP by mouth daily. testosterone cypionate 200 mg/cc, 1 vial = cc 10 mL 2 12/07 Active (DEPOTESTOTERONE Inject _1.0_ cc IM Q __7 days. CYPIONATE) 200 MG/ML injection tamoxifen (NOLVADEX) 10 MG Take 1 Tab by 180 Tab 3 9 Active tablet mouth two times daily. hydrochlorothiazide 12.5 Take 12.5 mg 30 Each 4 06/01/2019 Active MG TABS by mouth daily. triamterene-hydrochlorothi TAKE 1 CAPSULE 36 Cap 0 08/07/20 19 Active azide (DYAZIDE) 37.5-25 MG BY MOUTH 3 per capsule TIMES A WEEK anastrozole (ARIMIDEX) 1 TAKE 1 TABLET 30 Tab 1 02/02/2020 Active MG tablet BY MOUTH EVERY DAY documented as of this encounter (statuses as of 03/04/2020) Active Problems Not on filedocumented as of this encounter (statuses as of 03/04/2020) Social History Tobacco Use Types Packs/Day Years Used Date Never Smoker Smokeless Tobacco: Never Used Alcohol Use Drinks/Week oz/Week Comments No Sex Assigned at Date Recorded Male 02/27/2020 6:19 PM CDT Job Start Date Occupation Industry Not on file Not on file Not on file Travel History Travel Start Travel End No recent travel history available. COVID-19 Exposure Response Date Recorded In the last month, have you been in contact with Yes 02/27/2020 6:21 PM CDT someone who was confirmed or suspected to have Coronavirus / COVID-19? documented as of this encounter Last Filed Vital Signs Vital Sign Reading Time Taken Comments Blood Pressure 94/55 03/01/2020 3:12 PM CDT Pulse 74 03/01/2020 3:12 PM CDT Temperature - - Respiratory Rate - - Oxygen Saturation - - Inhaled Oxygen Concentration - - Weight 104.3 kg (230 lb) 03/01/2020 3:12 PM CDT Height 172.7 cm (5' 8") 03/01/2020 3:12 PM CDT Body Mass Index 34.97 03/01/2020 3:12 PM CDT documented in this encounter Progress Notes Omero Trejo MD - 03/01/2020 3:00 PM CDTI saw and evaluated the patient and agree with the resident's/fellow's findings as written. 34 y.o. yo male patient returns with a moderate history with hypogonadism now on testosterone therapy for months. Last seen 10/2018 34 y.o. malepatient returns with amoderatehistorywith hypogonadismnow on testosterone therapy for severalmonths. -Planning on donor eggs in Apr for IVF -> Wants to cycle off to reboot on high dose HCG/FSH/Anastrazole. -Previously had to use FSH to reboot. -Only has 2 vials frozen -Repeat SA in February ---today Previous symptoms included: Low Libido, Decreased energy level, Reduction in muscle mass, Body composition changes with increased abdominal fat, Decrease in strength, Decreased quality of erections, Difficulty achieving erections, Difficulty maintaining erections during intercourse, Decreased morning erections and Decreased noctural erections SA TD Les Ramirez MD - 03/01/2020 3:00 PM CDT Last seen 12/08/2019 -- video visit Follow up Patient Low Testosterone No chief complaint on file. HPI: 34 y.o. yo male patient returns with a moderate history with hypogonadism now on testosterone therapy for months. Last seen 10/2018 34 y.o. malepatient returns with amoderatehistorywith hypogonadismnow on testosterone therapy for severalmonths. -Planning on donor eggs in Apr for IVF -> Wants to cycle off to reboot on high dose HCG/FSH/Anastrazole. -Previously had to use FSH to reboot. -Only has 2 vials frozen -Repeat SA in February ---today Previous symptoms included: Low Libido, Decreased energy level, Reduction in muscle mass, Body composition changes with increased abdominal fat, Decrease in strength, Decreased quality of erections, Difficulty achieving erections, Difficulty maintaining erections during intercourse, Decreased morning erections and Decreased noctural erections Component Latest Ref Rng & Units 10/06/2019 02/22/2020 GLUCOSE EXT 70 - 99 MG/DL 84 BLOOD UREA NITROGEN EXT 6 - 20 MG/DL 19 CREATININE EXT 0.80 - 1.40 MG/DL 1.34 EGFR AA >60 ML/MIN/1.73 80 EGFR EXT >60 ML/MIN/1.73 69 BUN/CREAT RATIO 6 - 28 RATIO 14 SODIUM EXT 133 - 146 MEQ/L 145 POTASSIUM EXT 3.5 - 5.4 MEQ/L 5.3 CHLORIDE EXT 95 - 107 MEQ/L 104 CO2 EXT 19 - 31 MEQ/L 29 CALCIUM EXT 8.5 - 10.5 MG/DL 10.3 PROTEIN TOTAL 6.1 - 8.3 G/DL 7.1 ALBUMIN EXT 3.5 - 5.2 G/DL 4.5 GLOBULINS, SERUM, TOTAL 1.9 - 3.7 G/DL 2.6 A/G RATIO 1.0 - 2.6 RATIO 1.7 BILIRUBIN TOTAL EXT <=1.2 MG/DL 0.5 ALKALINE PHOSPHATASE EXT 40 - 112 U/L 50 AST (SGOT) EXT 9 - 50 U/L 55 (H) ALT (SGPT) EXT 5 - 50 U/L 52 (H) CHOLESTEROL EXT <200 MG/DL 175 TRIGLYCERIDES EXT <150 MG/DL 60 HDL EXT >39 MG/DL 32 (L) LDL CHOLESTEROL CALCULATED <100 MG/DL 131 (H) LDL/HDL RATIO, SERUM <3.55 RATIO 4.09 (H) TESTOSTERONE, TOTAL EXT 300 - 1,080 NG/DL 1,162 (H) SEX HORMONE BINDING GLOBULIN 16.5 - 55.9 NMOL/L 9.6 (L) CALC FREE TESTOSTERONE 47.0 - 244.0 PG/ML 425.5 (H) PROLACTIN EXT 4.0 - 26.0 NG/ML 14.1 ESTRADIOL <=60.7 PG/ML 20.0 HEMATOCRIT EXT 37.0 - 49.0 % 55.7 (H) dhea-s 160 - 449 UG/DL 105 (L) SARS-COV-2 NEGATIVE Review of Systems Musculoskeletal: Negative Respiratory: Negative Cardiovascular: Negative Major illness, prior hospitalizations, surgical procedures and current medications were validated and updated appropriately. Physical Exam: BP 141/76 (BP Location: left arm, Patient Position: Sitting, Cuff Size: large) | Pulse 68 | Ht 5' 8" (1.727 m) | Wt 237 lb (107.5 kg) | BMI 36.04 kg/m Body mass index is 36.04 kg/m. General: 34 y.o. male well developed, well nourished and in no acute distress, non-diaphoretic HEENT: NCAT, EOMI, hearing intact, mouth - mucus membranes moist Resipiratory: No audible wheezes, normal effort, symmetrical chest wall motion, no coughing noted Chest wall: gynecomastia, no breast tenderness Neurologic: Grossly normal; nonfocal exam Skin: Skin color, texture, turgor normal. No rashes or lesions Assessment and Plan There are no diagnoses linked to this encounter. I reviewed the common causes of hypogonadism with Mr. Dotson. We will obtain a hypogonadal panel to determine if his hormonal axis is abnormal. I instructed him to touch base with us regarding replacement options if required. If needed, at that point we will begin treatment. I also reviewed with him common risks following testosterone replacement, including cholesterol imbalance, polycythemia, prostate cancer progression and infertility. He understands these risks and wishes to proceed. Tarik is to adhere to a strict followup biannually. We reviewed with him with the[facility]'s Position Statement on testosterone therapy as well as our office's consent form. This patient has medical/surgicalhistory that complicates the prescribing of testosterone therapy. No Les Kirby MD documented in this encounter Plan of Treatment Name Type Priority Associated Diagnoses Order S chedule TESTOSTERONE-TOTAL(UR Lab Routine Male hypog onadism Expected: 03/15/2020 O DEPT) Encounter for screening for (Approximate), cardiovascular d isorders Expires: 03/31/2020 Encounter for long-term (current) use of medications Screening for endocrine, metabolic and immunity disorder Malaise and fatigue ESTRADIOL,FEMALE(URO Lab Routine Male hypogo nadism Expected: 03/15/2020 DEPT) Encounter for screening for (Approximate), cardiovascular d isorders Expires: 03/31/2020 Encounter for long-term (current) use of medications Screening for endocrine, metabolic and immunity disorder Malaise and fatigue PROLACTIN(URO DEPT) Lab Routine Male hypogon adism Expected: 03/15/2020 Encounter for screening for (Approximate), cardiovascular d isorders Expires: 03/31/2020 Encounter for long-term (current) use of medications Screening for endocrine, metabolic and immunity disorder Malaise and fatigue DHEA SULFATE(URO Lab Routine Male hypogonadi sm Expected: 03/15/2020 DEPT) Encounter for screening for (Approximate), cardiovascular d isorders Expires: 03/31/2020 Encounter for long-term (current) use of medications Screening for endocrine, metabolic and immunity disorder Malaise and fatigue INSULIN LIKE GROWTH Lab Routine Male hypogon adism Ordered: 03/01/2020 FACTOR(IGF-1) Encounter for screening for cardiovascular d isorders Encounter for long-term (current) use of medications Screening for endocrine, metabolic and immunity disorder Malaise and fatigue SHBG(URO DEPT) Lab Routine Male hypogonadis m Expected: 03/15/2020 Encounter for screening for (Approximate), cardiovascular d isorders Expires: 03/31/2020 Encounter for long-term (current) use of medications Screening for endocrine, metabolic and immunity disorder Malaise and fatigue Health Maintenance Due Date Last Done Comments TETANUS SHOT (ADULT) 2000 BMI FOLLOW UP PLAN 2003 HIV SCREENING 2003 FLU VACCINE > 6 MONTHS 03/09/2020 documented as of this encounter Procedures Procedure Name Priority Date/Time Associated Diagnosis Comme nts HEMATOCRIT Routine 03/01/2020 3:27 PM Male hypogon adism Results for this CDT Encounter for screening proc edure are in for cardiovascular the resul ts disorders section. Encounter for long-term (current) use of medications Screening for endocrine, metabolic and immunity disorder Malaise and fatigue LIPID PANEL Routine 03/01/2020 3:27 PM Male hypogon adism Results for this CDT Encounter for screening proc edure are in for cardiovascular the resul ts disorders section. Encounter for long-term (current) use of medications Screening for endocrine, metabolic and immunity disorder Malaise and fatigue documented in this encounter Results HEMATOCRIT (03/01/2020 3:27 PM CDT) Pathologist Sig nature HEMATOCRIT 55.5 (H) 38.0 - 50.0 % CPL Comment: Unless Otherwise Indicated, All Testing Pe rformed At: [facility], [address] [place] [address] [employer] Made Shoe Unit Worker: Fernando Bowens CLIA Number [id number] [facility] [place]. [id number] Specimen Blood Performing Organization Address City/State/Zipcode Phone Number [place] [phone] LIPID PANEL (03/01/2020 3:27 PM CDT) CHOLESTEROL 149 <200 MG/DL CPL TRIGLYCERIDES 129 <150 MG/DL CPL HDL CHOLESTEROL 44 >39 MG/DL CPL LDL CHOLESTEROL 82 <100 MG/DL CPL CALCULATED Comment: NOTE: CALCULATED LDL IS BASED ON JAE-BORRERO METHOD WHICH INCLUDES ADJUSTABLE TRIGLYCERIDE:VLDL CHOLESTEROL RATI O. THIS FACTOR VARIES BY MEASURED TRIGLYCERIDE AND NON-HD L CHOLESTEROL CONCENTRATIONS WITH INCREASED CALCULATED L DL SEEN IN HIGHER TRIGLYCERIDE OR LOWER NON-HDL SPECIMENS. FOR MORE INFORMATION, SEE CLIENT ANNOUNCEMENT AT [email or web address]/[email or web address] LDL/HDL RATIO, SERUM 1.86 <3.55 RATIO [facility] Comment: Unless Otherwise Indicated, All Testing Pe rformed At: [facility], [address] [place], [place] [id number] Machine Made Shoe Unit Worker: Fernando Bowens CLIA Number [id number] [facility] [place]. [id number] Specimen Blood Performing Organization Address [facility] Cent[facility] Phone Number [address] [address] SEMEN ANALYSIS(URO DEPT) (03/01/2020) Pathologist Sig nature VOLUME 1.50 ml SPL DENSITY 30.80 (A) 60 - 120 M/ml SPL MOTILITY 70 60 - 80 % SPL FORWARD PROGRESSION 1.5 (A) 2.5 - 3.5 SPL TOTAL COUNT 46.20 (A) 90 - 600 M SPL TOTAL MOTILE 32.34 (A) 54 - 480 M SPL OVAL SPL AMORPHOUS SPL TAPERED SPL DUPLICATE SPL CLUMPING 2+ None - 1+ SPL ROUNDCELLS 1-2 <7 /hpf SPL VISCOSITY 0 None 0-4+ SPL DAYS OF ABST B/F TO SEMN 2 SPL ANALYSIS COLLECTION TIME 3:20 PM SPL TIME IN LAB 3:23 PM SPL TIME EXAMINED 3:38 PM SPL COMMENTS SPL SPECIAL PROCEDURES SPL LABORATORY CLIA CERTIFICATION NO. [facility] [id number] DIRECTOR:JD MENDEZ,PH.D.,HCLD Specimen Semen Performing Organization Address [facility] Phone Number [facility] documented in this encounter Visit Diagnoses Diagnosis Male hypogonadism - Primary Other testicular hypofunction Encounter for screening for cardiovascul ar disorders Screening for other and unspecified card iovascular conditions Encounter for long-term (current) use of medications Encounter for long-term (current) use of other medications Screening for endocrine, metabolic and i mmunity disorder Malaise and fatigue Other malaise and fatigue documented in this encounter Insurance Payer Benefit Plan / Subscriber ID Effective Dates Phone Addre ss Type Group [employer] OPEN xxxxxxxxxxx 2019-Present [address] PPO ACCESS - PETER RIVAS [phone] (Home) [place] [address] documented as of this encounter
== END 2020-05-16 13:23 | disposition home or self-care (01) ==
LOC: ER 11:21
DX: R07.9 Chest pain, unspecified (principal)
CPT/HCPCS: 93005; 85025; 80048; 36415; 82565; 80076; 84484; 83690; 83880; 71275; 71045; 99285; Q9967

== ENCOUNTER 2020-10-12 18:23 | Emergency (ER) | payer OTHER ==
--- OUTSIDE RECORDS SUMMARY | 2020-10-12 18:26 | XMS REPORT | Continuity of Care Document ---
:1985 Author Organization [facility] t Address [address] [place] [address] Care Team Providers Name Role Phone Maya FOSTER I Attending Clinician Provider, Urgent Care Attending Clinician Unavailable Suresh Mancilla MD Attending Clinician Doctor Unassigned, Name Attending Clinician Unavailable Problems This patient has no known problems. Allergies, Adverse Reactions, Alerts This patient has no known allergies or adverse reactions. Medications This patient has no known medications. Procedures This patient has no known procedures. Encounters Start End Encounter Admission Attending Care Care Encounter Source Date/Time Date/Time Type Type Clinicians Facility Department ID 2020-06-11 2020-06-11 Office MAGUE Trejo [id number] 16:15:34 17:44:56 Visit Omero I AMBULATOR [id number] Y [id number] 2020-05-16 2020-05-16 Telephone Provider, [facility] [id number] 00:00:00 00:00:00 [facility] [id number] Care [place] [id number] Professjed [phone] nal [address] 2020-03-01 2020-03-01 Office MAGUE Trejo [id number] 14:50:36 18:22:28 Visit Omero I AMBULATOR [id number] Y [id number] 300 2019-10-14 2019-10-14 Urgent TUYET Mancilla [id number] 19:58:53 20:13:53 Care [facility] [id number] Surgical [id number] Specialti [phone] [address] [place] 2019-10-14 2019-10-14 Orders Doctor TAMARA [id number] 00:00:00 00:00:00 Only Unassigned, DANIEL [id number] [place] [facility] [id number] [id number] 2019-10-06 2019-10-06 Office MAGUE Trejo [id number] 14:56:25 17:15:33 Visit Omero I AMBULATOR [id number] Y [id number] 300 2019-06-01 2019-06-01 Office MAGUE Trejo [id number] 13:06:21 14:14:22 Visit Omero I AMBULATOR [id number] Y [id number] Results This patient has no known results.
--- NOTE | 2020-10-12 19:28 | ER ---
Nurse's Notes [facility] Name: Bartolo Dotson Age: 35 yrs Sex: Male : 1985 Arrival Date: 10/12/2020 Time: 18:25 Bed Waiting Private MD: Diagnosis: ED Course: 10/12 18:25 Patient arrived in ED. am2 19:27 Patient's name was called from ER lobby. No response. Unable to locate patient. Will ca1 disposition as left without being seen by a provider. Administered Medications: No medications were administered Outcome: 19:27 Patient left the ED. ca1 Signatures: Stacey Marcos am2 Anais Shea RN RN ca1
== END 2020-10-12 19:27 | disposition left against medical advice (07) ==
LOC: ER 18:23
DX: Z02.9 Encounter for administrative examinations, unspecified (principal)

== ENCOUNTER 2024-06-19 21:30 | Emergency (ER) | payer OTHER ==
[2024-06-19 22:18] LABS: Absolute Eosinophils 0.2 K/uL (0-0.5); Absolute Lymphocytes (CBC) 0.8 K/uL (0.7-4.9); Absolute Monocytes 0.4 K/uL (0.1-1.3); Absolute Neutrophil 7.3 K/uL (1.8-8.0); Basophils % 0.4 % (0-1.3); Eosinophils % 2.1 % (0-4.4); Hematocrit 53.6 % (39.6-49.0); Hemoglobin 17.3 g/dL (13.6-17.9); Lymphocytes % 9.4 % (15.3-44.8); MCH 25.6 pg (27.0-35.0); MCHC 32.2 g/dL (32.0-36.0); MCV 79.4 fL (80-100); Neutrophils % 83.1 % (41.7-73.7); Platelets 273 thou/uL (152-406); RBC Red Blood Cell Count 6.75 M/uL (4.33-5.43); Red Cell Distribution Width 14.5 % (12.1-15.2)
[2024-06-19] MEDS ORDERED: ONDANSETRON 4 MG/2 ML VIAL ONE (22:26)
[2024-06-19] MEDS ORDERED: NA CHLORIDE 0.9% 1,000 ML ONE (22:26)
[2024-06-19 22:40] LABS: ALT/SGPT 51 U/L (16-61); AST/SGOT 39 U/L (15-37); Albumin 3.8 g/dL (3.4-5.0); Albumin/Globulin Ratio 1.1 (1.1-1.8); Alkaline Phosphatase 59 U/L (45-117); BUN Blood Urea Nitrogen 23 mg/dL (7-18); Bicarbonate 27 mEq/L (21-32); Bilirubin Total 0.5 mg/dL (0.2-1.0); Globulin 3.5 g/dL (2.3-3.5); Glomerular Filtration Rate 66 ml/min (=/>90); Glucose Level 108 mg/dL (74-106); Protein, Total 7.3 g/dL (6.4-8.2); Sodium Level 140 mEq/L (136-145); Troponin High Sensitivity 7.9 pg/mL (<58.9)
[2024-06-19 22:41] LABS: Bilirubin Direct < 0.2 mg/dL (0-0.2); Bilirubin Indirect, Calculated 0.3 mg/dL (0.2-0.8)
--- NOTE | 2024-06-19 22:45 | RAD REPORT ---
EXAMINATION: ONE VIEW CHEST XR CLINICAL INDICATION: Male, 39 years old.,CHEST PAIN TECHNIQUE: Frontal chest projection is submitted. Examination is limited by patient positioning and t echnique. COMPARISON: 05/16/2020 FINDINGS: The lungs are clear. No pneumothorax or sizable effusion. The heart is normal in size. Mediastinal c ontours are unremarkable. IMPRESSION: No acute intrathoracic abnormalities.
[2024-06-19 23:11] LABS: SARS-CoV-2 Antigen CONTROL BLUE LINE VIS/BG OK; SARS-CoV-2 Antigen Rapid Res Negative (Negative)
[2024-06-20] MEDS ORDERED: ACETAMINOPHEN 500 MG TAB ONE (00:14)
--- NOTE | 2024-06-20 00:51 | ER ---
Nurse's Notes [facility] Name: Bartolo Dotson Age: 39 yrs Sex: Male : 1985 Arrival Date: 06/19/2024 Time: 21:30 Bed 13 Private MD: Diagnosis: Chest pain, unspecified Presentation: 06/19 21:41 Chief complaint: Patient states: chest pain for two months that is progressively bm8 getting worse tonight it was the worst. Coronavirus screen: At this time, the client does not indicate any symptoms associated with coronavirus-19. Ebola Screen: Patient negative for fever greater than or equal to 101.5 degrees Fahrenheit, and additional compatible Ebola Virus Disease symptoms Patient denies exposure to infectious person. Patient denies travel to an Ebola-affected area in the 21 days before illness onset. No symptoms or risks identified at this time. Initial Sepsis Screen: Does the patient meet any 2 criteria? No. Patient's initial sepsis screen is negative. Does the patient have a suspected source of infection? No. Patient's initial sepsis screen is negative. Risk Assessment: Do you want to hurt yourself or someone else? Patient reports no desire to harm self or others. 21:41 Method Of Arrival: Ambulatory bm8 21:41 Acuity: DALY 2 bm8 Triage Assessment: 21:42 General: Appears in no apparent distress. comfortable, Behavior is cooperative, bm8 appropriate for age, anxious. Pain: Complains of pain in chest Pain radiates to left arm Pain currently is 3 out of 10 on a pain scale. EENT: No deficits noted. No signs and/or symptoms were reported regarding the EENT system. Neuro: No deficits noted. Level of Consciousness is awake, alert, obeys commands, Oriented to person, place, time, situation, Appropriate for age. Cardiovascular: Reports chest pain, Heart tones S1 S2 present Capillary refill < 3 seconds in bilateral fingers Patient's skin is warm and dry. Respiratory: Airway is patent Respiratory effort is even, unlabored, Respiratory pattern is regular, symmetrical. GI: Reports nausea. : No signs and/or symptoms were reported regarding the genitourinary system. Derm: No signs and/or symptoms reported regarding the dermatologic system. Musculoskeletal: No signs and/or symptoms reported regarding the musculoskeletal system. Historical: - Allergies: 21:42 No Known Allergies; bm8 - Home Meds: 21:42 testerone replacement theyrapy [Active]; bm8 - PMHx: 21:42 None; bm8 - PSHx: 21:42 None; bm8 - Immunization history:: Adult Immunizations up to date. - Infectious Disease History:: Denies. - Family history:: not pertinent. - Social history:: Smoking status: Patient denies any tobacco usage or history of. Screenin/12 00:00 [facility] ED Fall Risk Assessment (Adult) History of falling in the last 3 months, jb4 including since admission No falls in past 3 months (0 pts) Confusion or Disorientation No (0 pts) Intoxicated or Sedated No (0 pts) Impaired Gait No (0 pts) Mobility Assist Device Used No (0 pt) Altered Elimination No (0 pt) Score/Fall Risk Level 0 - 2 = Low Risk Oriented to surroundings, Maintained a safe environment. Abuse screen: Denies threats or abuse. Nutritional screening: No deficits noted. Tuberculosis screening: No symptoms or risk factors identified. Assessment: 06/19 22:00 General: Appears in no apparent distress. uncomfortable, Behavior is calm, cooperative, jb4 appropriate for age. Pain: Complains of pain in chest Pain radiates to left arm Pain currently is 3 out of 10 on a pain scale. Pain began 2 months ago. Is continuous. Neuro: Level of Consciousness is awake, alert, obeys commands, Oriented to person, place, time, situation. Cardiovascular: Patient's skin is warm and dry. Respiratory: Airway is patent Respiratory effort is even, unlabored, Respiratory pattern is regular, symmetrical. GI: Abdomen is flat, non-distended, Reports diarrhea, nausea, vomiting. Derm: Skin is intact, Skin is pink, warm \T\ dry. Musculoskeletal: Circulation, motion, and sensation intact. Range of motion: intact in all extremities. 23:00 Reassessment: Patient appears in no apparent distress at this time. Patient and/or jb4 family updated on plan of care and expected duration. Pain level reassessed. Patient is alert, oriented x 3, equal unlabored respirations, skin warm/dry/pink. 06/20 00:41 Reassessment: Patient appears in no apparent distress at this time. Patient and/or jb4 family updated on plan of care and expected duration. Pain level reassessed. Patient is alert, oriented x 3, equal unlabored respirations, skin warm/dry/pink. Vital Signs: 06/19 21:41 BP 143 / 94; Pulse 104; Resp 20; Temp 98.7; Pulse Ox 98% ; Weight 104.33 kg; Height 5 bm8 ft. 8 in. ; Pain 3/10; 22:00 BP 142 / 87; Pulse 88; Resp 16; Pulse Ox 95% on R/A; jb4 23:46 BP 130 / 73; Pulse 97; Resp 16; Pulse Ox 96% on R/A; jb4 06/20 00:00 BP 140 / 98; Pulse 90; Resp 16; Pulse Ox 96% on R/A; jb4 06/19 21:41 Body Mass Index 34.97 (104.33 kg, 172.72 cm) bm8 06/19 21:41 Pain Scale: Adult 8 ED Course: 06/19 21:33 Patient arrived in ED. jj6 21:34 Joe Jones MD is Attending Physician. rt 21:42 Triage completed. bm8 21:42 Arm band placed on right wrist. bm8 22:10 No provider procedures requiring assistance completed. Inserted saline lock: 18 gauge jb4 in right antecubital area, using aseptic technique. Blood collected. 22:10 Patient maintains SpO2 saturation greater than 95% on room air. jb4 22:15 Willy Garcia, RN is Primary Nurse. jb4 22:15 Basic Metabolic Panel Sent. jb4 22:15 CBC with Diff Sent. jb4 22:15 D-Dimer Sent. jb4 22:15 LFT's Sent. jb4 22:15 Troponin HS Sent. jb4 22:20 XRAY Chest (1 view) In Process Unspecified. EDMS 06/20 00:00 Patient has correct armband on for positive identification. Call light in reach. Side jb4 rails up X 1. Provided Education on: plan of care. Client placed on continuous cardiac and pulse oximetry monitoring. NIBP monitoring applied. 00:50 Ajit Coffey MD is Referral Physician. rt 01:29 IV discontinued, intact, bleeding controlled, No redness/swelling at site. Pressure jb4 dressing applied. Administered Medications: 06/19 22:31 Drug: NS 0.9% IV 1000 ml IV at 1 bolus Per protocol; to be given as a bolus over 60 jb4 minutes Route: IV; Rate: 1 bolus; Site: right antecubital; 23:31 Follow up: Response: No adverse reaction; Marked relief of symptoms; IV Status: jb4 Completed infusion; IV Intake: 1000ml 22:32 Drug: Ondansetron IVP 4 mg IVP once; over 2 minutes Route: IVP; Site: right antecubital;jb4 06/20 01:29 Follow up: Response: No adverse reaction; Marked relief of symptoms jb4 00:26 Drug: Acetaminophen PO 1000 mg PO once Route: PO; jb4 01:29 Follow up: Response: No adverse reaction; Marked relief of symptoms jb4 Medication: 00:00 VIS not applicable for this client. jb4 Intake: 06/19 23:31 IV: 1000ml; Total: 1000ml. jb4 Outcome: 06/20 00:51 Discharge ordered by . rt 01:28 Discharged to home ambulatory, jb4 01:28 Condition: stable 01:28 Discharge instructions given to patient, Instructed on discharge instructions, follow up and referral plans. Demonstrated understanding of instructions, follow-up care, 01:30 Patient left the ED. jb4 Signatures: Dispatcher [employer] EDMS Willy Garcia, RN RN jb4 Tess Grant jj6 Joe Jones MD MD rt Israel Ames, RN RN bm8
--- NOTE | 2024-06-20 00:51 | EDPHYS ---
Physician Documentation [facility] Name: Bartolo Dotson Age: 39 yrs Sex: Male : 1985 Arrival Date: 06/19/2024 Time: 21:30 Bed 13 Private MD: ED Physician Joe Jones HPI: 06/19 21:42 This 39 yrs old Male presents to ER via Unassigned with complaints of Chest Pain, Arm rt Pain, Nausea. 21:42 Patient is had intermittent chest pain for the past few months, the patient states that rt earlier today but now prior to arrival, had worsening of the pain that went to the neck, left arm. Patient has associated nausea, vomiting, diarrhea which she states he did is not sure is related or not patient states that the symptoms have mostly resolved, reports of mild chest tightness currently. Denies other acute complaints, symptoms are moderate in severity, no other aggravating alleviating factors.. Historical: - Allergies: 21:42 No Known Allergies; bm8 - Home Meds: 21:42 testerone replacement theyrapy [Active]; bm8 - PMHx: 21:42 None; bm8 - PSHx: 21:42 None; bm8 - Immunization history:: Adult Immunizations up to date. - Infectious Disease History:: Denies. - Family history:: not pertinent. - Social history:: Smoking status: Patient denies any tobacco usage or history of. ROS: 21:42 Constitutional: Negative for fever, chills, and weight loss, Respiratory: Negative for rt shortness of breath, cough, wheezing, and pleuritic chest pain, MS/Extremity: Negative for injury and deformity, Skin: Negative for injury, rash, and discoloration, Neuro: Negative for headache, weakness, numbness, tingling, and seizure, 21:42 Cardiovascular: Positive for chest pain, Negative for palpitations, 21:42 Respiratory: Positive for 21:42 Abdomen/GI: Positive for nausea, vomiting, and diarrhea, Exam: 21:42 Constitutional: This is a well developed, well nourished patient who is awake, alert, rt and in no acute distress. Head/Face: Normocephalic, atraumatic. Chest/axilla: Normal chest wall appearance and motion. Nontender with no deformity. No lesions are appreciated. Cardiovascular: Regular rate and rhythm with a normal S1 and S2. No gallops, murmurs, or rubs. Normal PMI, no JVD. No pulse deficits. Respiratory: Lungs have equal breath sounds bilaterally, clear to auscultation and percussion. No rales, rhonchi or wheezes noted. No increased work of breathing, no retractions or nasal flaring. Abdomen/GI: Soft, non-tender, with normal bowel sounds. No distension or tympany. No guarding or rebound. No evidence of tenderness throughout. Skin: Warm, dry with normal turgor. Normal color with no rashes, no lesions, and no evidence of cellulitis. MS/ Extremity: Pulses equal, no cyanosis. Neurovascular intact. Full, normal range of motion. Neuro: Awake and alert, GCS 15, oriented to person, place, time, and situation. Cranial nerves II-XII grossly intact. Motor strength 5/5 in all extremities. Sensory grossly intact. Cerebellar exam normal. Normal gait. 21:45 ECG was reviewed by the Attending Physician. rt Vital Signs: 21:41 BP 143 / 94; Pulse 104; Resp 20; Temp 98.7; Pulse Ox 98% ; Weight 104.33 kg; Height 5 bm8 ft. 8 in. ; Pain 3/10; 22:00 BP 142 / 87; Pulse 88; Resp 16; Pulse Ox 95% on R/A; jb4 23:46 BP 130 / 73; Pulse 97; Resp 16; Pulse Ox 96% on R/A; jb4 06/20 00:00 BP 140 / 98; Pulse 90; Resp 16; Pulse Ox 96% on R/A; jb4 06/19 21:41 Body Mass Index 34.97 (104.33 kg, 172.72 cm) 8 06/19 21:41 Pain Scale: Adult bm MDM: 06/19 21:38 Medical Screening Exam initiated rt 06/20 01:11 Differential diagnosis: CAD, ACS, nonspecific chest pain, chest wall pain, pulmonary rt embolus. HEART Score: History: Moderately Suspicious (1), ECG: Non specific repolarization disturbance / LBTB / PM (1), Age: < or = 45 years (0), Risk Factors: 1 or 2 risk factors (1), Troponin: < or = 1 x Normal Limit (0), Total Score = 3. Data reviewed: vital signs, nurses notes, lab test result(s), EKG, radiologic studies. Consideration of Admission/Observation Escalation of care including admission/observation considered. Independent interpretation of the following test(s) in the Emergency Department X-Ray: My interpretation is No infiltrate seen on my interpretation of x-ray images. Test considered but Not performed: CT: D-dimer negative, CT angiogram is not needed. Counseling: I had a detailed discussion with the patient and/or guardian regarding the historical points, exam findings, and any diagnostic results supporting the discharge/admit diagnosis, lab results, radiology results, the need for outpatient follow up, to return to the emergency department if symptoms worsen or persist or if there are any questions or concerns that arise at home. Response to treatment: the patient's symptoms have markedly improved after treatment. 06/19 21:38 Order name: Basic Metabolic Panel; Complete Time: 22:46 rt 06/19 21:38 Order name: CBC with Diff; Complete Time: 22:25 rt 06/19 21:38 Order name: D-Dimer; Complete Time: 22:25 rt 06/19 21:38 Order name: LFT's; Complete Time: 22:46 rt 06/19 21:38 Order name: Troponin HS; Complete Time: 22:46 rt 06/19 22:25 Order name: Influenza Screen (a \T\ B); Complete Time: 23:13 rt 06/19 22:25 Order name: SARS RAPID; Complete Time: 23:13 rt 06/19 23:53 Order name: Troponin HS; Complete Time: 00:49 rt 06/19 21:38 Order name: XRAY Chest (1 view); Complete Time: 22:46 rt 06/19 21:38 Order name: Cardiac monitoring; Complete Time: 22:15 rt 06/19 21:38 Order name: EKG - Nurse/Tech; Complete Time: 22:15 rt 06/19 21:38 Order name: IV Saline Lock; Complete Time: 22:15 rt 06/19 21:38 Order name: Labs collected and sent; Complete Time: 22:15 rt 06/19 21:38 Order name: O2 Per Protocol; Complete Time: 22:15 rt 06/19 21:38 Order name: O2 Sat Monitoring; Complete Time: 22:15 rt 06/19 23:53 Order name: Misc. Order: repeat troponin now; Complete Time: 00:26 rt EC/11 21:45 Rate is 104 beats/min. Rhythm is regular, Sinus tachycardia with No ectopy. QRS [place] is rt Normal. CA interval is normal. QRS interval is normal. QT interval is normal. No Q waves. T waves are Normal. No ST changes noted. Interpreted by me. Administered Medications: 22:31 Drug: NS 0.9% IV 1000 ml IV at 1 bolus Per protocol; to be given as a bolus over 60 jb4 minutes Route: IV; Rate: 1 bolus; Site: right antecubital; 23:31 Follow up: Response: No adverse reaction; Marked relief of symptoms; IV Status: jb4 Completed infusion; IV Intake: 1000ml 22:32 Drug: Ondansetron IVP 4 mg IVP once; over 2 minutes Route: IVP; Site: right antecubital;jb4 06/20 01:29 Follow up: Response: No adverse reaction; Marked relief of symptoms 4 00:26 Drug: Acetaminophen PO 1000 mg PO once Route: PO; jb4 01:29 Follow up: Response: No adverse reaction; Marked relief of symptoms jb4 Disposition Summary: 06/20/24 00:51 Discharge Ordered Notes: Location: Home rt Problem: new rt Symptoms: have improved rt Condition: Stable rt Diagnosis - Chest pain, unspecified rt Followup: rt - With: Ajit Coffey MD - When: 5 - 6 days - Reason: Discharge Instructions: - Discharge Summary Sheet rt - Nonspecific Chest Pain, Adult rt Forms: - Medication Reconciliation Form rt - Antibiotic Education rt - Prescription Opioid Use rt - Patient Portal Instructions rt - Leadership Thank You Letter rt Signatures: Dispatcher [employer] EDWilly Ayala, RN RN jb4 Joe Jones MD MD rt Israel Ames RN RN bm8 Corrections: (The following items were deleted from the chart) 06/19 21:39 21:39 Chest Single View+RAD.RAD.BRZ ordered. EDMS EDMS 22: 22:26 Influenza Screen (A \T\ B)+BA.LAB.BRZ ordered. EDMS EDMS 22: 22:26 SARS-COV-2 Antigen Rapid+I.LAB.BRZ ordered. EDMS EDMS
[2024-06-20 01:50] VITALS: TEMP 98.7
[2024-06-20 01:52] VITALS: O2SAT 96
[2024-06-20 01:53] VITALS: BP 140/98
--- NOTE | 2024-06-20 08:50 | EKG ---
Test Date: 2024-06-19 Test Time: 21:38:25 [employer] Recruiting Intern: HERBIE MEASUREMENT RESULTS: Intervals: Rate: 105 RI: 164 QRSD: 96 QT: 338 QTc: 446 [place]: P: 65 RI: 164 QRS: 113 T: 7 INTERPRETIVE STATEMENTS: Sinus tachycardia Otherwise normal ECG Compared to ECG 05/16/2020 11:58:11 Sinus bradycardia no longer present Electronically Signed On 06-20-24 08:49:43 POWER HOUSE CONTROL ROOM OPERATOR by Ronal Werner
== END 2024-06-20 01:30 | disposition home or self-care (01) ==
LOC: ER 21:30
DX: R07.9 Chest pain, unspecified (principal); R11.2 Nausea with vomiting, unspecified; Z11.52 Encounter for screening for COVID-19
CPT/HCPCS: 96361; 93005; 85025; 80048; 36415; 85379; 80076; 84484 ×2; 87804 ×2; 71045; 96374; 99284; 87811; J2405; J7030